=== PATIENT | male | born 1995 | race Caucasian/White ===

== ENCOUNTER → 2017-04-22 | Day surgery (SDC) | payer OTHER ==
[~2017-04-22] VITALS: Ht 180.3 cm; Wt 79.4 kg
[~2017-04-22] MED LIST: ERTAPENEM(*) 1 GM VIAL 1 GM in NS(*) 0.9% 100 ML ADDVANT BAG 100 ML IVPB ONE; LORazepam 2 MG/ML VIAL IVP ONE; MIDAZOLAM 2 MG/2 ML VIAL ONE; NS(*) 0.9% 1000 ML BAG 1,000 ML IV ONE; fentaNYL CITR 100 MCG/2 ML AMP ONE
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
--- NOTE | 2017-04-22 19:07 | RADIOLOGY IMAGING REPORT ---
FACILITY: [facility] PATIENT NAME: Colin West : 1995 MR: [id number] V: [id number] EXAM DATE: ORDERING PHYSICIAN: ANTONIO RUBIO TECHNOLOGIST: Location: [facility] Patient: Colin West : 1995 Visit/Account:[id number] Date of Sevice: 04/22/2017 ABDOMEN AP AND ERECT/DECUB HISTORY: Foreign body COMPARISON: None. FINDINGS: There is a large radiopaque foreign body extending from the rectum to the rectosigmoid colon. This m easures 15.4 x 2.8 cm. IMPRESSION: Large rectal foreign body. No evidence of bowel perforation Report Dictated By: Hussein Child MD at 04/22/2017 6:59 PM Report E-Signed By: Hussein Child MD at 04/22/2017 7:02 PM WSN:[id number]
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
[2017-04-22 20:30] VITALS: BP 126/83
--- NOTE | 2017-04-22 21:17 | Short(Outpt) Discharge Summary ---
Discharge Summary Reason for Hosp/Final Diag: (1) Rectal foreign body Status: Acute Hospital Course & Plan: 04/22/17: I have reviewed the x-ray and I have explained in great detail the situation with this patient. We will proceed to the OR and attempt transanal extraction of the foreign body but this may prove to be difficult since it is apparently made of glass and may be difficult to grasp and remove transanally. If this fails, will need to proceed with laparotomy and colotomy with removal of the object through a colotomy. I have explained both procedures with the patient in great detail as well as the alternatives, risks, and expected recovery and his questions have been answered. He would like to proceed with this plan including transanal rectal foreign body extraction, possibly laparotomy with extraction of the foreign body through a colotomy. Will give a dose of prophylactic antibiotics before the procedure in case surgery becomes necessary. 04/22/17: Glass phallic shaped "sex toy" removed transanally from patient's rectum without problems. Will d/c to home. Departure Discharge to: Home, Self Care Discharge Instructions Home Meds No Active Prescriptions or Reported Meds Diet: Regular Activity: As Tolerated Problem Qualifiers (1) Rectal foreign body: Encounter type: initial encounter Qualified Codes: T18.5XXA - Foreign body in anus and rectum, initial encounter HAMILTON RUSH MD Apr 22, 2017 21:17
--- NOTE | 2017-04-22 21:30 | Post Operative Progress Note ---
Post Operative Progress Note Date: Apr 22, 2017 Time: 21:24 Surgeon: Gissel Dictation number: [id number] Anesthesia: GETA by Dr. Wilkinson Pre-Op Diagnosis: Rectal foreign body Post-Op Diagnosis: FRANKIE Findings: 9 inch phallic-shaped solid glass dildo removed from rectum, no obvious rectal injury Procedure(s): Proctoscopy with rectal foreign body removal Specimen Removed:(May be N/A): None Complications: None Fluids: See anesthesia record Estimated Blood Loss: None Date OP Note Dictated: Apr 22, 2017 Time OP Note Dictated: 21:26 HAMILTON RUSH MD Apr 22, 2017 21:30
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
== END ==
LOC: ER 18:25 → OR 20:25
PROVIDERS: ATTEND Surgery
DX: T18.5XXA Foreign body in anus and rectum, initial encounter (principal)
CPT/HCPCS: 45915; 74019; 99285; J1335; J2060; J2250; J3010; J7030; J7050; 96361; 96365; 96375

== ENCOUNTER → 2017-07-18 | Outpatient (REF) | payer OTHER ==
[2017-07-18 11:08] LABS: PLATELET COUNT, AUTOMATED 210 K/uL (150-450)
== END ==
PROVIDERS: ATTEND Family Medicine
DX: K92.1 Melena (principal)
CPT/HCPCS: 82040; 82247; 82310; 82374; 82435; 82565; 82947; 84075; 84132; 84155; 84295; 84450; 84460; 84520; 85025; 87045; 87177

== ENCOUNTER 2018-02-22 11:29 | Emergency (ER) | payer OTHER ==
--- NOTE | 2018-02-22 11:40 | ER Report ---
History and Physical Time Seen By MD: 11:37 Hx. of Stated Complaint: UNABLE TO STRAIGHTEN RIGHT KNEE. HPI/ROS CHIEF COMPLAINT: Right knee pain HISTORY OF PRESENT ILLNESS: This is a 22-year-old male presents to emergency department for right knee pain. The patient states that this morning while he was kneeling on the floor in his apartment, he went to stand up and his right knee "locked up". Began to have severe pain to the lateral aspect of his right knee no numbness or tingling. Patient states that this is happened 25-30 times in the last year to year and a half. He is seen [facility] for this, they did physical therapy on his quadricep muscles. Patient states this is the most severe locked knee he's had and the most intense pain he's had as well. He is unable to extend the knee without pain also he feels physically unable to extend the knee. No other complaints. No fevers or chills, no nausea or vomiting. REVIEW OF SYSTEMS: Respiratory: No cough, no dyspnea. Cardiovascular: No chest pain, no palpitations. Gastrointestinal: No vomiting, no abdominal pain. Musculoskeletal: As above. 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 Reviewed Nurses Notes: Yes Hx Smoking: Yes Constitutional Vital Sign - Last 24 Hours 02/22/18 02/22/18 02/22/18 02/22/18 11:33 12:00 12:30 12:33 Temp 97.9 Pulse 86 85 90 Resp 20 24 24 B/P (MAP) 143/84 101/69 (80) 85/67 (73) 127/65 (85) Pulse Ox 93 92 96 O2 Delivery Room Air 02/22/18 02/22/18 12:45 12:46 B/P (MAP) 129/120 (123) 127/87 (100) Physical Exam General Appearance: The patient is alert, has no immediate need for airway protection and no current signs of toxicity. Eyes: Pupils equal and round no injection. Respiratory: Chest is non tender, lungs are clear to auscultation. Cardiac: regular rate and rhythm. Gastrointestinal: Abdomen is soft and non tender, no masses, bowel sounds normal. Musculoskeletal: Neck: Neck is supple and non tender. Extremities unable to extend right knee beyond about 15-20 degrees, due to pain. There is some generalized swelling to the right knee. No crepitus or obvious deformity. Negative anterior and posterior drawer. significant pain with valgus and varus, however more so with varus. Skin: No rashes or lesions. DIFFERENTIAL DIAGNOSIS: After history and physical exam differential diagnosis was considered for patellar dislocation, meniscus tear, ACL and PCL injury. Medical Decision Making ED Course/Re-evaluation ED Course The patient was admitted to room. A history and physical were obtained. Differential diagnoses were considered. An IV was started. 50 g IV fentanyl 2 were given. 2 attempts at reducing the locked knee, likely secondary to a meniscus injury, these were unsuccessful. Dr. Brett Mcnamara did assist, he did an interarticular injection of the left lateral knee using lidocaine and fentanyl. The patient tolerated well, we attempted again and were successful. The patient was able to flex and extend the knee, complete relief of pain. The patient was placed in a knee immobilizer and instructed to follow up with [facility] for definitive treatment and evaluation of the knee. He had no other questions or concerns at this time and was discharged home. I did view the images myself that were sent over from [facility] and there concerning findings identified. Decision to Disposition Date: Feb 22, 2018 Decision to Disposition Time: 12:55 Depart Departure Latest Vital Signs Vital Signs Date Time Temp Pulse Resp B/P (MAP) Pulse Ox O2 Delivery O2 Flow Rate FiO2 02/22/18 12:46 127/87 (100) 02/22/18 12:30 90 24 96 02/22/18 11:33 97.9 Room Air Impression: Primary Impression: Locking of right knee Additional Impression: Right knee pain Condition: Improved Disposition: HOME OR SELF-CARE Referrals: [facility] 2 Weeks New Scripts No Active Prescriptions or Reported Meds Patient Instructions: Knee Pain (ED), Meniscus Tear (ED) Additional Instructions: It is very likely that you have a meniscus injury, therefore I highly recommend following up with [facility] within the next 2 weeks. Take Ibuprofen or Tylenol as needed for pain. Drink plenty of water. Get plenty of rest. Please consider [facility] counseling services, I do think you would benefit from this. Return to the ED for any other concerns or worsening symptoms. [facility] consult with MD: Examined Patient (Dr. Mcnamara.) Problem Qualifiers Additional Impression: Right knee pain Chronicity: acute Qualified Codes: M25.561 - Pain in right knee DES KAYP-BC Feb 22, 2018 11:40
[2018-02-22] MEDS ORDERED: fentaNYL CITR 100 MCG/2 ML AMP IM ONE ×2 (11:55→12:30)
[2018-02-22] MEDS ORDERED: fentaNYL CITR 100 MCG/2 ML AMP IVP ONE ×2 (12:00→12:15)
[2018-02-22 12:46] VITALS: BP 127/87
== END 2018-02-22 13:16 | disposition home or self-care (01) ==
LOC: ER 11:34
DX: M23.91 Unspecified internal derangement of right knee (principal); M25.561 Pain in right knee
CPT/HCPCS: 96372; 96374; 99284; J3010; L1830

== ENCOUNTER → 2018-05-29 | Outpatient (CLI) | payer OTHER ==
--- NOTE | 2018-05-29 16:32 | EKG ---
FACILITY: [facility] PATIENT NAME: CHRISTINE AVERY : [id number] MR: [id number] V: [id number] EXAM DATE: ORDERING PHYSICIAN: HAMILTON SYKES TECHNOLOGIST: ABDIRAHMAN Test Reason : PRE OP Blood Pressure : / mmHG Vent. Rate : 083 BPM Atrial Rate : 083 BPM P-R Int : 142 ms QRS Dur : 094 ms QT Int : 348 ms P-R-T Axes : 071 083 045 degrees QTc Int : 408 ms Normal sinus rhythm Normal ECG No previous ECGs available Confirmed by HAMILTON AGUIRRE ([id number]) on 05/29/2018 6:55:14 PM Referred By: ONEL Confirmed By:HAMILTON AGUIRRE
== END ==
LOC: RESP 15:23
PROVIDERS: ATTEND Anesthesiology
DX: Z01.810 Encounter for preprocedural cardiovascular examination (principal); M25.561 Pain in right knee
CPT/HCPCS: 93005